=== PATIENT | male | born 1990 | race Caucasian/White ===

== ENCOUNTER 2023-01-27 10:00 | Emergency (ER) | payer OTHER, SELFPAY ==
[2023-01-27 10:05] VITALS: BP 162/99; PULSE 115; RESP 22; TEMP 36.9; O2SAT 98; BMI 22.8
--- NOTE | 2023-01-27 10:49 | EXP.UTC ---
Discharge Plan Disposition Patient Disposition: Home, Self-Care Condition: Good Prescriptions Prescriptions: New amoxicillin-pot clavulanate 500-125 mg Tablet 1 tab PO Q12H 5 Days Qty: 10 0RF No Action fluoxetine 40 mg capsule 40 mg PO DAILY Patient Comments: TAKE 1 CAPSULE BY MOUTH DAILY dextroamphetamine-amphetamine 30 mg tablet 30 mg PO BID Patient Comments: TAKE 1 TABLET BY MOUTH DAILY NEEDED Referrals Follow up/Referrals: Provider,Referral, MD [Primary Care Provider] - See instructions Activity Restrictions/Add. Instructions Additional Instructions/Restrictions: Keep area clean and dry Allow steri strips to wear off Use finger splint as discussed to keep from bending finger and opening wound Take medication as prescribed Clinical Impressions Clinical Impression: Laceration Instructions Patient Instructions: DI for Laceration Repair-Skin Closure Strips [place]charge ED Provider[place]ade Reyes [facility] [place] Stated complaint: AO@home 01/25 RT pinky lac Mode of Arrival: Ambulatory Source of Information: Patient Limitations: No Limitations Time Seen by Provider: 01/27/23 10:20 Description of Symptoms (Recalled from Triage Doc. by RN): PATIENT C/O LACERATION TO RIGHT PINKY FINGER AFTER CUTTING IT ON A BROKEN FLOWER POT 2 DAYS AGO HEENT Symptoms (Recalled from RN notes): No Resp Symptoms (Recalled from RN notes): No Skin Symptoms (Recalled from RN notes): Yes MS Symptoms (Recalled from RN notes): No Functional Status (Recalled from RN notes): WNL History of Present Illness Provider Complaint: Patient states that he cut his right little finger on and coffee pot a couple of days ago States that he was worried it may be getting infected and wanted to see about getting it closed Related Data Home Medications Medication Instructions Recorded Confirmed dextroamphetamine-amphetamine 30 30 mg PO BID ADHD 01/27/23 01/27/23 mg tablet fluoxetine 40 mg capsule 40 mg PO DAILY Depression 01/27/23 01/27/23 Previous Rx's Medication Instructions Recorded amoxicillin 500 mg-potassium 1 tab PO Q12H 5 days #10 tabs 01/27/23 clavulanate 125 mg tablet Allergies Allergy/AdvReac Type Severity Reaction Status Date / Time No Known Allergies Allergy Verified 01/27/23 10:11 Worker's Comp Is this a Worker's Comp case?: No [facility] Disclaimer: The information contained in this section may have been updated after the patient was seen, as this information can be updated by other users. Medical History (Updated 01/27/23 @ 10:52 by Jade Reyes APRN) ADHD Anxiety Depression Social History Smoking Status: Unknown if ever smoked alcohol intake: never current occupational status: employed Travel in the last 8 weeks: None ROS Obtained: Yes All systems reviewed & no additional complaints except as documented and Yes Systems reviewed as appropriate & no additional complaints except as documented Constitutional Constitutional: Reports system reviewed and no additional complaints, except as documented Eyes Eyes: Reports system reviewed and no additional complaints, except as documented and Reports as per HPI ENT Ears, Nose, Mouth, and Throat: Reports system reviewed and no additional complaints, except as documented and Reports as per HPI Cardiovascular Cardiovascular: Reports system reviewed and no additional complaints, except as documented and Reports as per HPI Respiratory Respiratory: Reports system reviewed and no additional complaints, except as documented and Reports as per HPI Gastrointestinal Gastrointestingal: Reports system reviewed and no additional complaints, except as documented and as per HPI Integumentary/Breasts Skin/Breast: Reports system reviewed and no additional complaints, except as documented and Reports as per HPI Comments: small laceration to right little finger no bleeding 2 days ago on dirty flower pot Physical Exam General Gen
[2023-01-27 10:54] VITALS: BP 162/99; PULSE 115; RESP 22; TEMP 36.9; O2SAT 98
== END 2023-01-27 10:56 | disposition home or self-care (01) ==
PROVIDERS: Emergency Provider Nurse Practitioner
DX: S61.216A Laceration without foreign body of right little finger without damage to nail, initial encounter (principal); F90.9 Attention-deficit hyperactivity disorder, unspecified type; F41.9 Anxiety disorder, unspecified; F32.A Depression, unspecified; W25.XXXA Contact with sharp glass, initial encounter
CPT/HCPCS: 99204; 99212; G0463